=== PATIENT | male | born 1990 | race Two or more races ===

== ENCOUNTER 2021-10-30 08:33 | Emergency (ER) | payer OTHER ==
[~2021-10-30] VITALS: Ht 167.6 cm; Wt 68.0 kg
[2021-10-30 08:44] VITALS: BP 153/91
[2021-10-30] MEDS ORDERED: AMLO1TAB99 PO (08:51)
[2021-10-30] MEDS ORDERED: IBUP-571 PO (09:15)
[2021-10-30] MEDS ORDERED: ONDANSETRON 4MG ODT 4TABLET STARTPACK. PO ONE ×2 (09:15→09:21)
[2021-10-30] MEDS ORDERED: NAPROXEN 500 MG TABLET PO ONE (09:15)
[2021-10-30] MEDS ORDERED: ONDANSETRON ODT 4 MG TAB.RAPDIS PO ONE (09:15)
--- NOTE | 2021-10-30 09:16 | PHYS DOC ---
Past History Past Surgical History: No Surgical History General Adult EDM: Chief Complaint: FOOT INJURY PAIN HPI: HPI: 31-year-old male presents with right foot pain. The patient jumped off of an upper bunk bed yesterday and had pain underneath his right foot. It was tender throughout the day. When he woke up this morning, he was somewhat swollen and hurts more. He describes it as a moderate cramping sensation. He was concerned about the swelling so he came and evaluate for fracture. The pain has made him feel a bit nauseous. He has no other complaints at this time. Review of Systems: Review of Systems: Constitutional: Denies fever or chills Eyes: Denies change in visual acuity HENT: Denies nasal congestion or sore throat Respiratory: Denies cough or shortness of breath Cardiovascular: Denies chest pain or edema GI: Nausea. Denies abdominal pain, vomiting, bloody stools or diarrhea : Denies dysuria Musculoskeletal: Right plantar foot pain Integument: Denies rash Neurologic: Denies headache, focal weakness or sensory changes Endocrine: Denies polyuria or polydipsia Lymphatic: Denies swollen glands Psychiatric: Denies depression or anxiety Allergies: Allergies: Allergies Coded Allergies Type Severity Reaction Last Updated Verified No Known Drug Allergies 10/30/21 No Physical Exam: PE: Constitutional: Well developed, well nourished, no acute distress, non-toxic appearance. [] HENT: Normocephalic, atraumatic, bilateral external ears normal, oropharynx moist, no oral exudates, nose normal. [] Eyes: PERRLA, EOMI, conjunctiva normal, no discharge. [] Neck: Normal range of motion, no tenderness, supple, no stridor. [] Cardiovascular: Heart rate regular rhythm, no murmur [] Lungs & Thorax: Bilateral breath sounds clear to auscultation [] Abdomen: Bowel sounds normal, soft, no tenderness, no masses, no pulsatile masses. [] Skin: Warm, dry, no erythema, no rash. [] Back: No tenderness, no CVA tenderness. [] Extremities: Tenderness of the plantar surface of the right foot, swelling distal to the calcaneus, no ecchymosis or obvious deformity. [] Neurologic: Alert and oriented X 3, normal motor function, normal sensory function, no focal deficits noted. [] Psychologic: Affect normal, judgement normal, mood normal. [] Current Patient Data: Vital Signs: Vital Signs Date Time Temp Pulse Resp B/P (MAP) Pulse Ox O2 Delivery O2 Flow Rate FiO2 10/30/21 08:44 99.9 78 18 153/91 (111) 95 Room Air EKG: EKG: [] Radiology/Procedures: Radiology/Procedures: [] Heart Score: C/O Chest Pain: N/A Risk Factors: Risk Factors: DM, Current or recent (<one month) smoker, HTN, HLP, family history of CAD, obesity. Risk Scores: Score 0 - 3: 2.5% MACE over next 6 weeks - Discharge Home Score 4 - 6: 20.3% MACE over next 6 weeks - Admit for Clinical Observation Score 7 - 10: 72.7% MACE over next 6 weeks - Early Invasive Strategies Course & Med Decision Making: Course & Med Decision Making Pertinent Labs and Imaging studies reviewed. (See chart for details) [] Dragon Disclaimer: Dragon Disclaimer: This electronic medical record was generated, in whole or in part, using a voice recognition dictation system. Departure Departure: Impression: Primary Impression: Right foot sprain Qualified Codes: S93.601A - Unspecified sprain of right foot, initial encounter Disposition: HOME / SELF CARE / HOMELESS Condition: STABLE Referrals: PCP,NO (PCP) Patient Instructions: Foot Sprain-Brief Scripts Ibuprofen (Ibu) 600 Mg Tablet 1 TAB PO Q6HRS PRN for PAIN for 7 Days, #28 TAB 0 Refills Prov: THOM MARQUEZ DO 10/30/21 THOM MARUQEZ DO Oct 30, 2021 09:16
[2021-10-30] MEDS ORDERED: NAPROXEN 500 MG TABLET ONE (09:21)
--- NOTE | 2021-10-30 09:36 | RAD ---
EXAM: Right foot, 3 views. HISTORY: Pain. COMPARISON: None. FINDINGS: 3 views of the right foot are obtained. There is no fracture, dislocation or subluxation. T here is no foreign body. There is no suspicious osseous lesion. IMPRESSION: No acute osseous finding. Electronically signed by: Jeny Childs MD (10/30/2021 9:33 AM) [facility]
== END 2021-10-30 09:35 | disposition home or self-care (01) ==
LOC: ER 08:33
DX: S93.601A Unspecified sprain of right foot, initial encounter (principal); W06.XXXA Fall from bed, initial encounter; Y93.39 Activity, other involving climbing, rappelling and jumping off; Y92.89 Other specified places as the place of occurrence of the external cause; Y99.8 Other external cause status
CPT/HCPCS: 73630; 99284; Q0162

== ENCOUNTER 2021-12-28 17:38 | Emergency (ER) | payer OTHER ==
[~2021-12-28] VITALS: Ht 167.6 cm; Wt 68.0 kg
[~2021-12-28 17:38] MED LIST: AMLO1TAB99 PO; IBUP-571 PO
--- NOTE | 2021-12-28 18:18 | RAD ---
XR CHEST 1V 12/28/2021 5:45 PM INDICATION: Nail puncture wound to the upper right side of chest COMPARISON: None available TECHNIQUE: Portable frontal view of the chest is provided. FINDINGS: The cardiomediastinal silhouette is within normal limits. Lungs are clear. There are no significant pleural effusions. There is no pulmonary vascular congestion. No pneumothora x. No suspicious osseous abnormality. IMPRESSION: There is no acute cardiopulmonary process. No radiopaque foreign density. Electronically signed by: Karma Rouse MD (12/28/2021 6:16 PM) [facility]
[2021-12-28] MEDS ORDERED: AMOXICILLIN/K CLAV 875/125MG TABLET. PO ONE (18:30)
[2021-12-28] MEDS ORDERED: DIPHTH,PERTUSS(ACELL),TET TOX 0.5 ML DISP.SYRIN. VAX IM ONE (18:30)
[2021-12-28] MEDS ORDERED: AMOX1TAB11 PO (18:30)
--- NOTE | 2021-12-28 18:30 | PHYS DOC ---
Past History Past Surgical History: No Surgical History Alcohol Use: None Adult General Chief Complaint Chief Complaint: PUNCTURE WOUND HPI HPI Patient is a 31-year-old male, otherwise healthy presents with puncture wound to right upper chest. 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 States he did not really hurt too bad. Denies any other injuries. States he is not up-to-date on his tetanus. Review of Systems Review of Systems Review of systems otherwise unremarkable except noted in HPI Allergies Allergies Allergies Coded Allergies Type Severity Reaction Last Updated Verified No Known Drug Allergies 10/30/21 No Physical Exam Physical Exam Constitutional: Well developed, well nourished, no acute distress, non-toxic appearance. [] HENT: Normocephalic, atraumatic, Eyes: conjunctiva normal, no discharge. [] Neck: Normal range of motion, no tenderness, supple, no stridor. [] Cardiovascular:Heart rate regular rhythm, no murmur [] Lungs & Thorax: Bilateral breath sounds clear to auscultation. Upper right chest wall with half centimeter linear superficial laceration with no bleeding [] Abdomen: soft, no tenderness, no masses, no pulsatile masses. [] Skin: Warm, dry, no erythema, no rash. [] Back: No midline tenderness throughout entirety of spine with no obvious bruising, deformities or step-offs, range of motion intact Extremities: Neurovascular exam intact, no tenderness, no cyanosis, no clubbing, ROM intact, no edema. [] Neurologic: Alert and oriented X 3, normal motor function, normal sensory function, able to sit, stand and walk without issue, no focal deficits noted. [] Psychologic: Affect normal, judgement normal, mood normal. [] Current Patient Data Vital Signs Vital Signs Date Time Temp Pulse Resp B/P (MAP) Pulse Ox O2 Delivery O2 Flow Rate FiO2 12/28/21 17:40 97.9 63 18 153/80 (104) 99 Room Air EKG EKG [] Radiology/Procedures Radiology/Procedures [] Heart Score C/O Chest Pain: No Risk Factors: Risk Factors: DM, Current or recent (<one month) smoker, HTN, HLP, family history of CAD, obesity. Risk Scores: Risk Factors: DM, Current or recent (<one month) smoker, HTN, HLP, family history of CAD, obesity. Course & Med Decision Making Course & Med Decision Making Patient is a 31-year-old male who presents with a puncture wound upper right chest wall Vital signs notable for hypertension. Physical exam noted above. Wound cleaned extensively. No need for suture repair. Steri-Strip repair Updated tetanus. Started on antibiotics. Chest x-ray not concerning. Denied need for pain medicine. Advised on symptom control at home. Even wound care materials and wound care instruction for home. Advised to follow-up with primary care physician in a week to 10 days for reevaluation Gave return precautions to the ED. Patient grateful, verbalized understanding and agreed with plan of discharge [] Dragon Disclaimer Dragon Disclaimer This electronic medical record was generated, in whole or in part, using a voice recognition dictation system. Departure Departure: Impression: Primary Impression: Puncture wound Disposition: HOME / SELF CARE / HOMELESS Condition: STABLE Referrals: PCP,NO (PCP) BRO NEELY MD Patient Instructions: Puncture Wound, Wound Care, [id number] Additional Instructions: Thank you for coming to the emergency department tonight and allowing us to take care of you. Please read the attached information carefully go over things we discussed. Please keep your wound clean, dry and bandaged. Please remove Steri-Strips and bandage daily, wash with warm soapy water, dry and rebandage with Steri-Strip and bandage as demonstrated. Please take your antibiotics as prescribed and until gone. Please follow-up with primary care physician as soon as you can to set up an appointment for wound reevaluation in 7 to 10 days. Please come back with new or concerning symptoms as discussed. Scripts Amoxicillin/Potassium Clav (AMOX TR-K CLV 875-125 MG TAB) 1 Each Tablet 1 TAB PO BID for wound for 10 Days, #19 TAB Prov: CORY QUINTANA MD 12/28/21 CORY QUINTANA MD Dec 28, 2021 18:30
[2021-12-28 18:40] VITALS: BP 144/90
== END 2021-12-28 18:51 | disposition home or self-care (01) ==
LOC: ER 17:38
DX: S21.131A Puncture wound without foreign body of right front wall of thorax without penetration into thoracic cavity, initial encounter (principal); W45.0XXA Nail entering through skin, initial encounter; Y93.89 Activity, other specified; Y92.89 Other specified places as the place of occurrence of the external cause; Y99.8 Other external cause status
CPT/HCPCS: 71045; 90471; 90715; 99283

== ENCOUNTER 2022-02-01 06:53 | Emergency (ER) | payer OTHER ==
[~2022-02-01] VITALS: Ht 167.6 cm; Wt 68.0 kg
[~2022-02-01 06:53] MED LIST changes: +AMOX1TAB11 PO
[2022-02-01 06:57] VITALS: BP 126/62
== END 2022-02-01 07:12 | disposition left against medical advice (07) ==
LOC: ER 06:53
DX: R41.82 Altered mental status, unspecified (principal); Z53.21 Procedure and treatment not carried out due to patient leaving prior to being seen by health care provider